=== PATIENT | male | born 1990 | race Caucasian/White ===

== ENCOUNTER 2016-10-13 10:35 | Emergency (ER) | payer OTHER ==
[2016-10-13 11:19] VITALS: BP 116/68
--- NOTE | 2016-10-13 12:15 | RAD ---
INDICATION: Injury left fourth toe COMPARISON: None TECHNIQUE: AP, lateral, and oblique views were obtained. FINDINGS: The bony structures, joint spaces, and soft tissues are normal for age. IMPRESSION: NEGATIVE EXAMINATION.
--- NOTE | 2016-10-13 13:09 | UC ---
Lower Extremity/Ankle HPI - HPI Summary HPI Summary: LEFT FOURTH TOE PAIN AND BRUISING AFTER HITTING TOE ON WHEELCHAIR RAMP YESTERDAY AT 1830PM. - History of Current Complaint Chief Complaint: UCLowerExtremity Stated Complaint: LEFT FOOT/TOE INJURY Time Seen by Provider: 10/13/16 11:16 Hx Obtained From: Patient, Family/Train Director Onset/Duration: Sudden Onset, Lasting Hours, Still Present Severity Initially: Moderate Severity Currently: Moderate Pain Intensity: 8 Pain Scale Used: 0-10 Numeric Aggravating Factor(s): Standing, Ambulation Alleviating Factor(s): Ice Able to Bear Weight: Yes - Risk Factors Gout Risk Factors: Negative DVT Risk Factors: Negative Septic Arthritis Risk Factor: Negative - Allergies/Home Medications Allergies/Adverse Reactions: Allergies Allergy/AdvReac Type Severity Reaction Status Date / Time Penicillins Allergy Unknown Unknown Verified 03/22/16 11:33 Reaction Details Prednisone Allergy Palpitation Verified 03/22/16 11:32 s all 'cillins Allergy Unknown Uncoded 10/13/16 11:19 Reaction Details Home Medications: Home Medications Acetaminophen [Acetaminophen Extra Stren] 1,000 mg PO ONCE PRN 10/13/16 [ History Confirmed 10/13/16] Baclofen 10 mg PO QID 10/13/16 [History Confirmed 10/13/16] Meloxicam 7.5 mg PO BID 10/13/16 [History Confirmed 10/13/16] PMH/Surg Hx/FS Hx/Imm Hx Previously Healthy: Yes - Surgical History Surgical History: Yes Surgery Procedure, Year, and Place: Cardiac valve repair ( no metal)- as a baby ; Right shoulder surgery-REMOVED A MASS - 2005 - Family History Known Family History: Positive: Unknown - adopted - Social History Occupation: Employed Full-time Lives: With Family Alcohol Use: None Alcohol Amount: 1-2 weekly Substance Use Type: None Smoking Status (MU): Never Smoked Tobacco Review of Systems Constitutional: Negative Skin: Bruising - LEFT FOURTH TOE Eyes: Negative ENT: Negative Respiratory: Negative Cardiovascular: Negative Gastrointestinal: Negative Genitourinary: Negative Motor: Negative Neurovascular: Negative Musculoskeletal: Negative Neurological: Negative Psychological: Negative All Other Systems Reviewed And Are Negative: Yes Physical Exam Triage Information Reviewed: Yes Appearance: Well-Appearing, No Pain Distress, Well-Nourished Vital Signs: Initial Vital Signs Temp 98.4 F 10/13/16 11:11 Pulse 55 10/13/16 11:11 Resp 18 10/13/16 11:11 BP 116/68 10/13/16 11:11 Vital Signs Reviewed: Yes Eye Exam: Normal ENT Exam: Normal ENT: Positive: Normal ENT inspection, Hearing grossly normal, TMs normal Dental Exam: Normal Neck exam: Normal Neck: Positive: Supple, Nontender, No Lymphadenopathy Respiratory Exam: Normal Respiratory: Positive: Chest non-tender, Lungs clear, Normal breath sounds, No respiratory distress, No accessory muscle use Cardiovascular Exam: Normal Cardiovascular: Positive: RRR, No Murmur, Pulses Normal Abdominal Exam: Normal Abdomen Description: Positive: Nontender, No Organomegaly Musculoskeletal Exam: Normal Neurological Exam: Normal Psychological Exam: Normal Skin Exam: Normal Lower Extremity Course/Dx - Differential Dx/Diagnosis Differential Diagnosis/HQI/PQRI: Fracture (Closed), Sprain, Strain Provider Diagnoses: LEFT FOURTH TOE CONTUSION,SPRAIN Discharge - Discharge Plan Condition: Stable Disposition: HOME Patient Education Materials: Foot Contusion (ED) Forms: *Work Release Referrals: [facility] [Outside] Magalys Duque MD [Primary Care Provider] -
== END 2016-10-13 12:57 | disposition home or self-care (01) ==
LOC: UCCORT 10:35
DX: S90.122A Contusion of left lesser toe(s) without damage to nail, initial encounter (principal); S93.505A Unspecified sprain of left lesser toe(s), initial encounter; W22.09XA Striking against other stationary object, initial encounter; Y93.9 Activity, unspecified; Y92.9 Unspecified place or not applicable
CPT/HCPCS: 99211; G0463

== ENCOUNTER 2017-03-16 15:30 | Emergency (ER) | payer OTHER ==
--- NOTE | 2017-03-16 17:09 | UC ---
Throat Pain/Nasal Ariel HPI - HPI Summary HPI Summary: 26 year old male with cough. ONSET 7 DAYS AGO RHINITIS, COUGH WHICH IMPROVED. 2 DAYS AGO PT EXPERIENCED DIZZINESS WITH NAUSEA AND VISUAL CHANGES. PT HAD SIMILAR EXPERIENCE APPROX 1 YR AGO WHEN HE STATES HE HAD THE FLU. He is concerned for the same thing as last year. No falls or passing out. No vision changes. (+) Mild vertigo at times but not nearly as bad as last year [ End ] - History of Current Complaint Chief Complaint: UCGeneralIllness Stated Complaint: LIGHTHEADED/HEAD CONGESTION Time Seen by Provider: 03/16/17 17:01 Hx Obtained From: Patient Onset/Duration: Gradual Onset Severity: Mild Cough: Nonproductive - Allergies/Home Medications Allergies/Adverse Reactions: Allergies Allergy/AdvReac Type Severity Reaction Status Date / Time Penicillins Allergy Unknown Unknown Verified 03/16/17 16:15 Reaction Details Prednisone Allergy Palpitation Verified 03/16/17 16:15 s all 'cillins Allergy Unknown Uncoded 03/16/17 16:15 Reaction Details PMH/Surg Hx/FS Hx/Imm Hx Previously Healthy: Yes - Surgical History Surgical History: Yes Surgery Procedure, Year, and Place: Cardiac valve repair ( no metal)- as a baby ; Right shoulder surgery-REMOVED A MASS - 2005 - Family History Known Family History: Positive: Unknown - adopted - Social History 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 Alcohol Use: Rare Alcohol Amount: 1-2 weekly Substance Use Type: None Smoking Status (MU): Never Smoked Tobacco Review of Systems Constitutional: Fatigue ENT: Nasal Discharge, Sinus Congestion, Sinus Pain/Tenderness Respiratory: Cough Neurological: Headache, Other - dizziness Is Patient Immunocompromised?: No All Other Systems Reviewed And Are Negative: Yes Physical Exam Triage Information Reviewed: Yes Appearance: Well-Appearing, No Pain Distress, Well-Nourished Vital Signs: Initial Vital Signs Temp 99.1 F 03/16/17 16:08 Pulse 52 03/16/17 16:08 Resp 20 03/16/17 16:08 BP 154/88 03/16/17 16:08 Pulse Ox 100 03/16/17 16:08 Vital Signs Reviewed: Yes Eye Exam: Normal ENT Exam: Normal ENT: Positive: Nasal congestion, TM dull - L>R Dental Exam: Normal Neck exam: Normal Neck: Positive: 1 Respiratory Exam: Normal Cardiovascular Exam: Normal Musculoskeletal Exam: Normal Neurological Exam: Normal Psychological Exam: Normal Skin Exam: Normal Throat Pain/Nasal Course/Dx - Course Assessment/Plan: neg flu. rest and fluids. go to ED if any acute concerns - Differential Dx/Diagnosis Differential Diagnosis/HQI/PQRI: Otitis Media, Pharyngitis, Sinusitis, URI Provider Diagnoses: URI / left serous effusion Discharge - Discharge Plan Condition: Good Disposition: HOME Prescriptions: Meclizine HCl [Meclizine 25] 25 mg PO TID PRN #20 tab PRN Reason: Dizziness Patient Education Materials: Benign Paroxysmal Positional Vertigo (ED) Forms: *Work Release Referrals: Magalys Duque MD [Primary Care Provider] - 4 Days (For recheck )
[2017-03-16 17:58] VITALS: BP 139/91
== END 2017-03-16 17:59 | disposition home or self-care (01) ==
LOC: UCCORT 15:30
DX: J06.9 Acute upper respiratory infection, unspecified (principal); H65.92 Unspecified nonsuppurative otitis media, left ear; Z88.0 Allergy status to penicillin; Z88.5 Allergy status to narcotic agent
CPT/HCPCS: 87502; 99212; G0463

== ENCOUNTER 2017-07-11 16:59 | Emergency (ER) | payer OTHER ==
[2017-07-11 17:24] VITALS: BP 130/73
--- NOTE | 2017-07-11 17:42 | UC ---
Lower Extremity/Ankle HPI - HPI Summary HPI Summary: Pt c/o right ankle ankle, after doing physical labor 10 days ago. Pt states that he was carrying heavy loads and jumping on an off a truck for hours from 2- 3 foot height. pt states pain worsen with plantar motion - History of Current Complaint Chief Complaint: UCLowerExtremity Stated Complaint: RIGHT ANKLE COMPLAINT Time Seen by Provider: 07/11/17 17:18 Hx Obtained From: Patient Onset/Duration: Sudden Onset, Lasting Days - 10, Worse Since - onset Severity Initially: Mild Severity Currently: Moderate Pain Intensity: 7 Aggravating Factor(s): Standing, Ambulation Alleviating Factor(s): Rest, Elevation Able to Bear Weight: Yes - Risk Factors Gout Risk Factors: Male DVT Risk Factors: Negative Septic Arthritis Risk Factor: Negative - Allergies/Home Medications Allergies/Adverse Reactions: Allergies Allergy/AdvReac Type Severity Reaction Status Date / Time Penicillins Allergy Unknown Verified 07/11/17 17:27 Reaction Details prednisolone Allergy Palpitation Verified 07/11/17 17:27 s all 'cillins Allergy Unknown Uncoded 07/11/17 17:27 Reaction Details Home Medications: Home Medications Naproxen TAB* [Naprosyn 375 mg TAB*] 375 mg PO BID PRN 07/11/17 [History Confirmed 07/11/17] PMH/Surg Hx/FS Hx/Imm Hx Previously Healthy: Yes - Surgical History Surgical History: Yes Surgery Procedure, Year, and Place: Cardiac valve repair ( no metal)- as a baby ; Right shoulder surgery-REMOVED A MASS - 2005 - Family History Known Family History: Positive: Unknown - adopted - Social History Occupation: Employed Full-time Lives: With Family Alcohol Use: Rare Alcohol Amount: 1-2 weekly Substance Use Type: None Smoking Status (MU): Never Smoked Tobacco Have You Smoked in the Last Year: No Review of Systems Constitutional: Negative Skin: Negative Eyes: Negative ENT: Negative Respiratory: Negative Cardiovascular: Negative Gastrointestinal: Negative Genitourinary: Negative Motor: Negative Neurovascular: Negative Musculoskeletal: Arthralgia, Myalgia Neurological: Negative Psychological: Negative Is Patient Immunocompromised?: No All Other Systems Reviewed And Are Negative: Yes Physical Exam Triage Information Reviewed: Yes Appearance: Well-Appearing Vital Signs: Initial Vital Signs Temp 98.5 F 07/11/17 17:20 Pulse 50 07/11/17 17:20 Resp 16 07/11/17 17:20 BP 130/73 07/11/17 17:20 Pulse Ox 100 07/11/17 17:20 Vital Signs Reviewed: Yes Eye Exam: Normal ENT: Positive: Hearing grossly normal Neck exam: Normal Respiratory: Positive: No respiratory distress Musculoskeletal Exam: Normal Musculoskeletal: Positive: Strength Intact, ROM Intact, No Edema Neurological Exam: Normal Psychological Exam: Normal Skin Exam: Normal Diagnostics - Radiology No standard instances Radiology Interpretation Completed By: Radiologist - FINDINGS: The bony structures, joint spaces, and soft tissues are normal for age. IMPRESSION: NEGATIVE EXAMINATION Lower Extremity Course/Dx - Differential Dx/Diagnosis Differential Diagnosis/HQI/PQRI: Sprain, Tendonitis Provider Diagnoses: right ankle tendonitis. right ankle sprain Discharge - Sign-Out/Discharge Documenting (check all that apply): Discharge/Admit/Transfer - Discharge Plan Condition: Stable Disposition: HOME Patient Education Materials: Tendinitis (ED), R.I.C.E. Treatment (ED) Referrals: Harinder Vasquez MD [Medical Doctor] - If Needed Magalys Duque MD [Primary Care Provider] - If Needed - Billing Disposition and Condition Condition: STABLE Disposition: HOME
--- NOTE | 2017-07-11 18:19 | RAD ---
INDICATION: Right ankle pain COMPARISON: None TECHNIQUE: AP, lateral, and oblique views were obtained. FINDINGS: The bony structures, joint spaces, and soft tissues are normal for age. IMPRESSION: NEGATIVE EXAMINATION
== END 2017-07-11 18:35 | disposition home or self-care (01) ==
LOC: UCCORT 16:59
DX: M77.9 Enthesopathy, unspecified (principal); S93.401A Sprain of unspecified ligament of right ankle, initial encounter; X50.0XXA Overexertion from strenuous movement or load, initial encounter; X50.1XXA Overexertion from prolonged static or awkward postures, initial encounter; X50.3XXA Overexertion from repetitive movements, initial encounter; Y93.89 Activity, other specified; Y92.9 Unspecified place or not applicable; Z88.0 Allergy status to penicillin; Z88.8 Allergy status to other drugs, medicaments and biological substances
CPT/HCPCS: 99211; G0463

== ENCOUNTER 2018-01-02 08:35 | Emergency (ER) | payer OTHER ==
[2018-01-02 09:01] VITALS: BP 129/83
--- NOTE | 2018-01-02 10:10 | UC ---
Lower Extremity/Ankle HPI - HPI Summary HPI Summary: left ankle pain x 1 days inversion injury to his left ankle playing basketball yesterday + pain and swelling lateral left ankle - History of Current Complaint Chief Complaint: UCLowerExtremity Stated Complaint: LEFT ANKLE INJURY Time Seen by Provider: 01/02/18 09:13 Hx Obtained From: Patient Onset/Duration: Sudden Onset, Lasting Days - 1, Still Present Severity Initially: Moderate Severity Currently: Moderate Pain Intensity: 5 Aggravating Factor(s): Standing, Ambulation Alleviating Factor(s): Rest, Elevation, Ice Able to Bear Weight: Yes - Allergies/Home Medications Allergies/Adverse Reactions: Allergies Allergy/AdvReac Type Severity Reaction Status Date / Time Penicillins Allergy Unknown Verified 01/02/18 08:55 Reaction Details prednisolone Allergy Palpitation Verified 01/02/18 08:55 s all 'cillins Allergy Unknown Uncoded 01/02/18 08:55 Reaction Details Home Medications: Home Medications Cholecalciferol TAB* [Vitamin D TAB*] 1,000 unit PO DAILY 01/02/18 [History Confirmed 01/02/18] Loratadine [Allerclear] 10 mg PO DAILY 01/02/18 [History Confirmed 01/02/18] PMH/Surg Hx/FS Hx/Imm Hx Previously Healthy: Yes - Surgical History Surgical History: Yes Surgery Procedure, Year, and Place: Cardiac valve repair (no metal)- as a baby; Right shoulder surgery-REMOVED A MASS - 2005 - Family History Known Family History: Positive: Unknown - adopted Negative: Diabetes - Social History Alcohol Use: Rare Alcohol Amount: 1-2 monthly Substance Use Type: None Smoking Status (MU): Never Smoked Tobacco Have You Smoked in the Last Year: No Review of Systems Constitutional: Negative Skin: Negative Eyes: Negative ENT: Negative Respiratory: Negative Is Patient Immunocompromised?: No All Other Systems Reviewed And Are Negative: Yes Physical Exam Triage Information Reviewed: Yes Appearance: Well-Appearing, No Pain Distress, Well-Nourished Vital Signs: Initial Vital Signs Temp 98.4 F 01/02/18 08:56 Pulse 66 01/02/18 08:56 Resp 15 01/02/18 08:56 BP 129/83 01/02/18 08:56 Pulse Ox 98 01/02/18 08:56 Vital Signs Reviewed: Yes Eye Exam: Normal Eyes: Positive: Conjunctiva Clear ENT: Positive: Normal ENT inspection, Hearing grossly normal Neck exam: Normal Neck: Positive: Supple, Nontender, No Lymphadenopathy Respiratory: Positive: Chest non-tender, Lungs clear, Normal breath sounds Cardiovascular: Positive: RRR, No Murmur, Pulses Normal Musculoskeletal: Positive: Other: - left ankle : + swelling / bruising lateral ankle , + tenderness lateral ankle , limited ROM on inversion , limited strength Diagnostics - Laboratory Diagnostic Studies Completed/Ordered: left ankle xray: IMPRESSION: SOFT TISSUE SWELLING OVERLYING THE LATERAL LEFT ANKLE WITH A POSSIBLE. AVULSION FRACTURE INVOLVING THE DISTAL MOST MEDIAL FIBULAR MALLEOLUS. Lower Extremity Course/Dx - Differential Dx/Diagnosis Provider Diagnoses: left ankle sprain. avulsion fracture left ankle Discharge - Sign-Out/Discharge Documenting (check all that apply): Patient Departure All imaging exams completed and their final reports reviewed: Yes - Discharge Plan Condition: Stable Disposition: HOME Patient Education Materials: Ankle Sprain (ED), Avulsion Fracture (ED) Forms: *Work Release Referrals: Harinder Vasquez MD [Medical Doctor] - As Soon As Possible Daysi Olivera MD [Primary Care Provider] - Additional Instructions: cont. with rest, ice, elevation use aircast ankle support cont. using your crutches take Ibuprofen as needed for pain referral to ortho [facility] - Billing Disposition and Condition Condition: STABLE Disposition: Home
== END 2018-01-02 10:06 | disposition home or self-care (01) ==
LOC: UCCORT 08:35
DX: S93.402A Sprain of unspecified ligament of left ankle, initial encounter (principal); S82.52XA Displaced fracture of medial malleolus of left tibia, initial encounter for closed fracture; X58.XXXA Exposure to other specified factors, initial encounter; Y93.67 Activity, basketball; Y92.9 Unspecified place or not applicable; Z88.0 Allergy status to penicillin; Z88.1 Allergy status to other antibiotic agents; Z88.8 Allergy status to other drugs, medicaments and biological substances
CPT/HCPCS: 99212; G0463

== ENCOUNTER 2018-04-09 07:12 | Day surgery (SDC) | payer OTHER ==
[~2018-04-09 07:12] MED LIST: Buffered Lidocaine 1% SYRIN* 1 ML/SYRINGE INTRADERM ONE; Lactated Ringers 1000 ML Bag* 1,000 ML IV SCH
[2018-04-09] MEDS ORDERED: Propofol* 10 MG/ML 20 ML BTL ONE (08:04)
[2018-04-09] MEDS ORDERED: Lidocaine 2% PF * 5 ML VIAL ONE (08:04)
[2018-04-09] MEDS ORDERED: Midazolam* 1 MG/ML 2 ML VIAL (2 MG) ONE (08:05)
[2018-04-09] MEDS ORDERED: fentaNYL* 50 MCG/ML 2 ML VIAL (100 MCG VIAL) ONE ×2 (08:05→10:43)
[2018-04-09] MEDS ORDERED: Succinylcholine* 20 MG/ML 10 ML VIAL ONE (08:05)
[2018-04-09] MEDS ORDERED: Clindamycin 900 MG/D5W BAG(*) 900 MG/50 ML BAG IVPB ONE (08:14)
[2018-04-09] MEDS ORDERED: Bupivacaine 0.5%* 50 ML VIAL ONE (09:03)
[2018-04-09] MEDS ORDERED: Lidocaine 2% PF* 10 ML AMP ONE (09:03)
[2018-04-09] MEDS ORDERED: Ondansetron INJ* 2 MG/ML VIAL ONE ×2 (09:39→11:29)
[2018-04-09] MEDS ORDERED: Metoclopramide IV* 5 MG/ML 2 ML VIAL ONE ×2 (09:39→11:29)
[2018-04-09] MEDS ORDERED: Ketorolac INJ* 30 MG/ML 1 ML VIAL ONE ×2 (09:39→11:29)
[2018-04-09] MEDS ORDERED: Dexamethasone IV* 4 MG/ML 1 ML (4 MG) ONE ×2 (09:39→11:29)
[2018-04-09] MEDS ORDERED: Sevoflurane* 1 BTL ONE (09:41)
[2018-04-09] MEDS ORDERED: Acetaminophen TAB* 325 MG PO PRN (10:29)
[2018-04-09] MEDS ORDERED: Naloxone* 0.4 MG/ML 1 ML VIAL IV PRN (10:29)
[2018-04-09] MEDS ORDERED: DiMENhydriNATE IV* 50 MG/ML VIAL IV PUSH PRN (10:29)
[2018-04-09] MEDS ORDERED: fentaNYL* 50 MCG/ML 2 ML VIAL (100 MCG VIAL) IV PRN (10:29)
[2018-04-09] MEDS ORDERED: oxyCODONE TAB* 5 MG TAB PO PRN (10:29)
[2018-04-09] MEDS ORDERED: oxyCODONE TAB* 5 MG TAB ONE (10:43)
[2018-04-09] MEDS ORDERED: Rocuronium* 10 MG/ML VIAL ONE (11:26)
[2018-04-09 11:52] VITALS: BP 135/91
--- NOTE | 2018-04-09 14:07 | OP ---
DATE OF OPERATION: 04/09/18 - [facility] DATE OF : 86 SURGEON: Juanjo Amezcua MD. LIQUID CENTER ASSEMBLER: LUZ MARIA Fuller PRE-OP DIAGNOSIS: Left ankle instability. POST-OP DIAGNOSIS: Left ankle instability. OPERATIVE PROCEDURE: Modified ligament repair, left ankle. DESCRIPTION OF PROCEDURE: The patient was taken to the operating room where a longitudinal incision was made over the distal fibula. We raised the anterior flap to allow full visualization of the anterior capsule, which was incised along the anterior and distal aspect of the distal fibula. The patient had a thick strong capsule, so we did not use the allograft. We placed posterior to anterior drill holes with a 0.062 C wire through the fibula. We passed #1 Vicryl back to front and created 2 different Manish-Zion sutures up with a more anterior than more distal portion of the capsule bringing that tightly to the anterior and distal fibula. The reflected periosteum was then brought down over the repair and also repaired with 2-0 Vicryl sutures. We irrigated and closed the subcutaneous tissue with 3-0 Monocryl and gareth for the skin and a compression dressing plaster splint applied. [id number]/CPS #: [id number] MTDD
== END 2018-04-09 11:55 | disposition home or self-care (01) ==
LOC: OR 07:12
PROVIDERS: ATTEND Orthopaedic Surgery
DX: M25.372 Other instability, left ankle (principal); S93.492D Sprain of other ligament of left ankle, subsequent encounter; X50.0XXD Overexertion from strenuous movement or load, subsequent encounter; Y92.310 Basketball court as the place of occurrence of the external cause; J45.909 Unspecified asthma, uncomplicated; K21.9 Gastro-esophageal reflux disease without esophagitis; Z88.0 Allergy status to penicillin
CPT/HCPCS: A9270-GY; J0330; J1100; J1885; J2001; J2250; J2405; J2704; J2765; J3010

== ENCOUNTER 2019-01-29 16:32 | Emergency (ER) | payer OTHER ==
[2019-01-29 16:42] VITALS: BP 121/78
--- NOTE | 2019-01-29 16:50 | UC ---
Throat Pain/Nasal Ariel HPI - HPI Summary HPI Summary: 28-year-old male whose had cold symptoms for greater than 1 week. Today he has increased sinus pressure, yellow postnasal drainage and productive cough of yellow sputum as well as a right earache. - History of Current Complaint Chief Complaint: UCGeneralIllness Stated Complaint: ST,COUGH Time Seen by Provider: 01/29/19 16:45 Hx Obtained From: Patient Onset/Duration: Gradual Onset Severity: Mild Pain Intensity: 0 Cough: Productive - Productive cough of yellow sputum. Associated Signs & Symptoms: Positive: Sinus Discomfort, Nasal Discharge - Yellow nasal coryza. - Allergies/Home Medications Allergies/Adverse Reactions: Allergies Allergy/AdvReac Type Severity Reaction Status Date / Time Penicillins Allergy Unknown Verified 01/29/19 16:43 Reaction Details prednisolone Allergy Palpitation Verified 01/29/19 16:43 s all 'cillins Allergy Unknown Uncoded 01/29/19 16:43 Reaction Details PMH/Surg Hx/FS Hx/Imm Hx Previously Healthy: Yes - Surgical History Surgical History: Yes Surgery Procedure, Year, and Place: Cardiac valve repair (no metal)- as a baby; . Right shoulder surgery-REMOVED A MASS - 2005. left ankle surgery 03/2018 - Family History Known Family History: Positive: Unknown - adopted Negative: Diabetes - Social History Lives: With Family Alcohol Use: Rare Alcohol Amount: 1-2 monthly Substance Use Type: None Smoking Status (MU): Never Smoked Tobacco Have You Smoked in the Last Year: No Review of Systems All Other Systems Reviewed And Are Negative: Yes ENT: Positive: Sore Throat - Sore throat which he believes is from postnasal drainage., Ear Ache - Right earache, Nasal Discharge - Yellow nasal coryza, Sinus Congestion, Sinus Pain/Tenderness Respiratory: Positive: Cough - Productive cough of yellow sputum Is Patient Immunocompromised?: No Physical Exam Triage Information Reviewed: Yes Appearance: Well-Appearing, No Pain Distress, Well-Nourished Vital Signs: Initial Vital Signs Temp 98.2 F 01/29/19 16:38 Pulse 66 01/29/19 16:38 Resp 16 01/29/19 16:38 BP 121/78 01/29/19 16:38 Pulse Ox 98 01/29/19 16:38 Vital Signs Reviewed: Yes Eyes: Positive: Conjunctiva Clear ENT: Positive: Pharynx normal, Nasal congestion, Nasal drainage - Yellow nasal coryza, yellow postnasal drainage., TM red - Right tympanic membrane is erythematous with moderate landmarks. Left tympanic membrane is pearly-hastings with good landmarks and light reflex.. Negative: Tonsillar swelling, Tonsillar exudate, Trismus Neck: Positive: Supple, Nontender, No Lymphadenopathy Respiratory: Positive: No respiratory distress, No accessory muscle use, Rhonchi. Negative: Wheezing - Scattered rhonchi in the lower lobes posteriorly. No distress. Cardiovascular: Positive: RRR, No Murmur, Pulses Normal, Brisk Capillary Refill Musculoskeletal Exam: Normal Neurological Exam: Normal Psychological Exam: Normal Skin Exam: Normal Throat Pain/Nasal Course/Dx - Course Course Of Treatment: I am going to treat the patient for sinusitis and possible clinical pneumonia although he does have good air movement and no consolidation on auscultation. He also has a right otitis media. I'm going to treated with doxycycline 100 mg by mouth twice a day 10 days. - Differential Dx/Diagnosis Provider Diagnosis: Sinusitis, Right acute otitis media Discharge ED - Sign-Out/Discharge Documenting (check all that apply): Patient Departure All imaging exams completed and their final reports reviewed: No Studies - Discharge Plan Condition: Fair Disposition: HOME Prescriptions: DOXYcycline CAP(*) [DOXYcycline 100MG CAP(*)] 100 mg PO BID 10 Days #20 cap Patient Education Materials: Sinusitis (ED) Referrals: Daysi Olivera MD [Primary Care Provider] - Additional Instructions: No dairy products, antacids or multivitamins 2 hours before you take the doxycycline and 2 hours after you take the doxycycline however take it with food. Take Tylenol every 4 hours or alternate with Motrin every 8 hours for pain or fever. Follow-up with your primary care provider early next week if no improvement. - Billing Disposition and Condition Condition: FAIR Disposition: Home
== END 2019-01-29 16:56 | disposition home or self-care (01) ==
LOC: UCCORT 16:32
DX: J32.9 Chronic sinusitis, unspecified (principal); H66.91 Otitis media, unspecified, right ear; Z88.0 Allergy status to penicillin; Z88.8 Allergy status to other drugs, medicaments and biological substances
CPT/HCPCS: 99212; G0463